=== PATIENT | male | born 1980 | race African-American/Black ===

== ENCOUNTER 2016-10-12 17:12 | Emergency (ER) | payer MEDICAID ==
[~2016-10-12] VITALS: Ht 162.6 cm; Wt 66.5 kg
[~2016-10-12 17:12] MED LIST: LORT5TAB PO; RANI150 PO; Z.0.NO CURRENT MEDS
[2016-10-12 17:21] VITALS: BP 135/85; PULSE 75; RESP 16; TEMP 101.1; O2SAT 97
--- NOTE | 2016-10-12 17:27 | PD ---
HPI Chief Complaint: Oral / Dental Pain or Problem Time Seen by Provider: 17:27 Travel History International Travel<30 days: No Contact w/Intl Traveler<30days: No Traveled to known affect area: No PFSH Past Medical History Respiratory: Yes (asthma) Social History Alcohol Use: Yes Tobacco Use: Yes Substance Use: No Allergies-Medications (Allergen,Severity, Reaction): Coded Allergies: No Known Allergies (Verified , 10/12/16) Reported Meds & Prescriptions Reported Meds & Active Scripts Active Lortab 5/500 (Acetaminophen/Hydrocodone Bitart) 5 Mg/500 Mg Tab 1-2 Tab PO Q6HPRN FOR PAIN Zantac (Ranitidine HCl) 150 Mg Tab 150 Mg PO BID Reported No Current Meds (Miscellaneous Medication) Misc Data Data Last Documented VS Vital Signs Date Time Temp Pulse Resp B/P Pulse Ox O2 Delivery O2 Flow Rate FiO2 10/12/16 17:21 101.1 75 16 135/85 97 MDM Scripts No Active Prescriptions or Reported Meds Rashard Walls Oct 12, 2016 17:27
[2016-10-12] MEDS ORDERED: SODIUM CHLOR 0.9% 1000 ML INJ 1,000 ML IV SCH (17:43)
[2016-10-12] MEDS ORDERED: SODIUM CHLORIDE 0.9% FLUSH 10 ML FLUSH IV FLUSH PRN (17:45)
[2016-10-12] MEDS ORDERED: KETOROLAC TROMETHAMINE 30 MG/ML (IVP) VIAL IVP ONE (17:45)
[2016-10-12] MEDS ORDERED: AMPICILLIN-SULBACTAM INJ 3 GM in SODIUM CHLORIDE 0.9% INJ 100 ML IV ONE (17:45)
[2016-10-12 18:08] VITALS: O2SAT 97
[2016-10-12 18:12] LABS: AUTOMATED NEUTROPHIL # 12.7 TH/MM3 (1.8-7.7); BASOPHIL # 0.3 TH/MM3 (0-0.2); BASOPHIL % 1.9 % (0.0-2.0); EOSINOPHIL % 0.3 % (0.0-4.0); HEMATOCRIT 43.4 % (39.0-51.0); HEMO FLAGS DIFF FINAL; LYMPH % 13.9 % (9.0-44.0); LYMPHOCYTE # 2.3 TH/MM3 (1.0-4.8); MEAN CELL VOLUME 91.9 FL (80.0-100.0); MEAN CORPUSCULAR HEMOGLOBIN 31.4 PG (27.0-34.0); MEAN CORPUSCULAR HGB CONC 34.1 % (32.0-36.0); MONO % 6.8 % (0.0-8.0); NEUT % 77.1 % (16.0-70.0); PLATELET COUNT 279 TH/MM3 (150-450); RED BLOOD COUNT 4.72 MIL/MM3 (4.50-5.90); RED CELL DISTRIBUTION WIDTH 13.2 % (11.6-17.2); WHITE BLOOD COUNT 16.4 TH/MM3 (4.0-11.0)
[2016-10-12 18:23] LABS: CHLORIDE 105 MEQ/L (98-107); POTASSIUM 3.9 MEQ/L (3.5-5.1); SODIUM (NA) 142 MEQ/L (136-145)
[2016-10-12 18:24] VITALS: BP 131/77; PULSE 82; RESP 18; TEMP 99.6; O2SAT 97
[2016-10-12 18:27] LABS: ANION GAP 8 MEQ/L (5-15); APTT (PATIENT) 32.7 SEC (24.3-30.1); BICARBONATE 29.4 MEQ/L (21.0-32.0); BLOOD UREA NITROGEN 7 MG/DL (7-18); PROTHROMBIN TIME - PATIENT 11.6 SEC (9.8-11.6)
[2016-10-12 18:30] LABS: ALT (GPT) 20 U/L (12-78); AST (GOT) 14 U/L (15-37); GLOMERULAR FILTRATION RATE 108 ML/MIN (>89)
[2016-10-12 18:31] LABS: TOTAL BILIRUBIN ADULT 0.8 MG/DL (0.2-1.0)
[2016-10-12 18:32] LABS: ALKALINE PHOSPHATASE 59 U/L (45-117)
[2016-10-12] MEDS ORDERED: IOHEXOL 350 MG/ML 10 ML VIAL (for RAD DIAG) IV ONE (18:34)
--- NOTE | 2016-10-12 19:01 | RADHPO ---
EXAM DATE/TIME: 10/12/2016 18:05 [place] COMPARISON: No previous studies available for comparison. INDICATIONS : Left sided jaw swelling. IV CONTRAST: 67 cc Omnipaque 350 (iohexol) IV RADIATION DOSE: 13.45 CTDIvol (mGy) MEDICAL HISTORY : Asthma SURGICAL HISTORY : None. ENCOUNTER: Initial ACUITY: 1 day PAIN SCALE: 3/10 LOCATION: Left facial TECHNIQUE: Volumetric scanning of the neck was performed. Using automated exposure control and a djustment of the mA and/or kV according to patient size, radiation dose was kept as low as reasonably achievable to obtain optimal diagnostic quality images. FINDINGS: There is a large amount of soft tissue swelling about the angle of the mandible on the left without associated bony destruction. There is effacement of the lingual artery space. The left submandibular gland is very prominent. There is some fluid in the soft tissues without discernible abscess. The left parotid gland appears normal. The induration in the effacement does extend up towards the left tonsillar pillar. There is very minimal nonspecific adenopathy in the low neck. Review of bone windows reveals no obvious bony destruction. Dentition looks intact. Maxillary sinus es are clear. CONCLUSION: 1. Marked soft-tissue swelling on the left. This is suspicious for a submandibular sialoadenitis. 2. Inflammatory process arising from a dental source could also be a consideration. 3. Neoplastic process is thought to be less likely. Correlation is suggested. . Pacheco Santos MD FACR on October 12, 2016 at 18:52 Board Certified Radiologist. This report was verified electronically.
[2016-10-12 20:10] VITALS: BP 122/71; PULSE 88; RESP 18; O2SAT 98
[2016-10-12] MEDS ORDERED: AUGM500T7 PO (20:15)
[2016-10-12] MEDS ORDERED: HYDR-3533 PO (20:15)
--- NOTE | 2016-10-12 20:16 | PD ---
Physical Exam Date Seen by Provider: Oct 12, 2016 Time Seen by Provider: 20:12 Narrative This 36-year-old male is complaining of pain and swelling on the left side of his neck. This is been going on for couple of days. It is very difficult for him to swallow. He has been having fever. He is generally healthy. He has considerable swelling in the area of the left parotid. I don't feel a stone. He has had a CT scan which shows sialoadenitis. After returning from CT scan the patient says he feels like his swelling has gone down. He was given a fluid challenge and is able to drink liquids. He will be released with prescription for Augmentin and Lortab. He is to use lemon drops to stimulate salivary flow. He is stable for discharge Data Data Last Documented VS Vital Signs Date Time Temp Pulse Resp B/P Pulse Ox O2 Delivery O2 Flow Rate FiO2 10/12/16 20:28 88 18 98 10/12/16 20:10 122/71 Room Air 10/12/16 18:24 99.6 Orders Complete Blood Count With Diff (10/12/16 17:43) Comprehensive Metabolic Panel (10/12/16 17:43) Lactic Acid (10/12/16 17:43) Prothrombin Time / Inr (Pt) (10/12/16 17:43) Act Partial Throm Time (Ptt) (10/12/16 17:43) Iv Access Insert/Monitor (10/12/16 17:43) Ecg Monitoring (10/12/16 17:43) Oximetry (10/12/16 17:43) NPO (10/12/16 17:43) Ampicillin-Sulbactam Inj (Unasyn Inj) (10/12/16 17:45) Sodium Chlor 0.9% 1000 Ml Inj (Ns 1000 M (10/12/16 17:43) Sodium Chloride 0.9% Flush (Ns Flush) (10/12/16 17:45) Ketorolac Inj (Toradol Inj) (10/12/16 17:45) Blood Culture (10/12/16 17:43) Ct Soft Tiss Neck W Iv Cont (10/12/16 17:43) Iohexol 350 Inj (Omnipaque 350 Inj) (10/12/16 18:34) Labs Laboratory Tests Test 4/10/17 17:55 White Blood Count 16.4 TH/MM3 Red Blood Count 4.72 MIL/MM3 Hemoglobin 14.8 GM/DL Hematocrit 43.4 % Mean Corpuscular Volume 91.9 FL Mean Corpuscular Hemoglobin 31.4 PG Mean Corpuscular Hemoglobin 34.1 % Concent Red Cell Distribution Width 13.2 % Platelet Count 279 TH/MM3 Mean Platelet Volume 8.6 FL Neutrophils (%) (Auto) 77.1 % Lymphocytes (%) (Auto) 13.9 % Monocytes (%) (Auto) 6.8 % Eosinophils (%) (Auto) 0.3 % Basophils (%) (Auto) 1.9 % Neutrophils # (Auto) 12.7 TH/MM3 Lymphocytes # (Auto) 2.3 TH/MM3 Monocytes # (Auto) 1.1 TH/MM3 Eosinophils # (Auto) 0.0 TH/MM3 Basophils # (Auto) 0.3 TH/MM3 CBC Comment DIFF FINAL Differential Comment Prothrombin Time 11.6 SEC Prothromb Time International 1.0 RATIO Ratio Activated Partial 32.7 SEC Thromboplast Time Sodium Level 142 MEQ/L Potassium Level 3.9 MEQ/L Chloride Level 105 MEQ/L Carbon Dioxide Level 29.4 MEQ/L Anion Gap 8 MEQ/L Blood Urea Nitrogen 7 MG/DL Creatinine 0.95 MG/DL Estimat Glomerular Filtration 108 ML/MIN Rate Random Glucose 101 MG/DL Lactic Acid Level 1.0 mmol/L Calcium Level 8.8 MG/DL Total Bilirubin 0.8 MG/DL Aspartate Amino Transf 14 U/L (AST/SGOT) Alanine Aminotransferase 20 U/L (ALT/SGPT) Alkaline Phosphatase 59 U/L Total Protein 7.6 GM/DL Albumin 4.0 GM/DL [facility] Medical Record Reviewed: No Supervised Visit with RICHARD: Yes Differential Diagnosis Differential includes sialoadenitis, dental abscess Narrative Course CT is suggestive sialoadenitis. Patient reports some improvement in his swelling and has tolerated oral fluids. He'll be released with prescription for Augmentin and Lortab Diagnosis Primary Impression: Sialoadenitis Scripts Hydrocodone-Acetaminophen (Lortab)5-325 Mg Tab1 Tab PO Q4H PRN (PAIN) #20 TAB Ref 0 Prov:Gigi Sanchez MD 10/12/16 Amoxicillin-Clavulanate (Augmentin)500-125 mg [id number] Mg PO Q8H #21 TAB Ref 0 Prov:Gigi Sanchez MD 10/12/16 Disposition: 01 DISCHARGE HOME Condition: Stable Gigi Sanchez MD Oct 12, 2016 20:16
--- NOTE | 2016-10-23 18:10 | PD ---
HPI Chief Complaint: Oral / Dental Pain or Problem Time Seen by Provider: 17:27 Travel History International Travel<30 days: No Contact w/Intl Traveler<30days: No Traveled to known affect area: No History of Present Illness HPI This 36-year-old male is complaining of swelling and pain on the left side of his face. This is been going on for 2 or 3 days. He has been having trouble swallowing. He is not aware of any bad teeth. He has not had trouble like this. He is generally healthy. PFSH Past Medical History Asthma: Yes Respiratory: Yes (asthma) Past Surgical History Surgical History: No Previous Surgery Social History Alcohol Use: Yes (2 X'S WEEK) Tobacco Use: No Substance Use: Yes (PlasticellJU[employer]ingies) Allergies-Medications (Allergen,Severity, Reaction): Coded Allergies: No Known Allergies (Verified , 10/12/16) Reported Meds & Prescriptions Reported Meds & Active Scripts Active Lortab (Hydrocodone-Acetaminophen) 5-325 Mg Tab 1 Tab PO Q4H PRN Augmentin (Amoxicillin-Clavulanate) 500-125 mg Tab 500 Mg PO Q8H Review of Systems General / Constitutional: Positive: Fever, Chills Eyes: No: Diploplia, Blurred Vision HENT: Positive: Sore Throat, No: Headaches, Vertigo Cardiovascular: No: Chest Pain or Discomfort, Palpitations Respiratory: No: Cough, Shortness of Breath Gastrointestinal: Positive: Dysphagia Genitourinary: No: Urgency, Frequency Musculoskeletal: No: Myalgias Neurologic: No: Weakness, Dizziness Physical Exam Narrative GENERAL: Well-developed male SKIN: Focused skin assessment warm/dry. HEAD: Atraumatic. Normocephalic. EYES: Pupils equal and round. No scleral icterus. No injection or drainage. ENT: No nasal bleeding or discharge. Mucous membranes pink and moist. There is considerable swelling in the left parotid area area and it is quite tender to touch NECK: Trachea midline. No JVD. CARDIOVASCULAR: Regular rate and rhythm. No murmur appreciated. RESPIRATORY: No accessory muscle use. Clear to auscultation. Breath sounds equal bilaterally. GASTROINTESTINAL: Abdomen soft, non-tender, nondistended. Hepatic and splenic margins not palpable. MUSCULOSKELETAL: No obvious deformities. No clubbing. No cyanosis. No edema. NEUROLOGICAL: Awake and alert. No obvious cranial nerve deficits. Motor grossly within normal limits. Normal speech. PSYCHIATRIC: Appropriate mood and affect; insight and judgment normal. Data Data Orders Complete Blood Count With Diff (10/12/16 17:43) Comprehensive Metabolic Panel (10/12/16 17:43) Lactic Acid (10/12/16 17:43) Prothrombin Time / Inr (Pt) (10/12/16 17:43) Act Partial Throm Time (Ptt) (10/12/16 17:43) Iv Access Insert/Monitor (10/12/16 17:43) Ecg Monitoring (10/12/16 17:43) Oximetry (10/12/16 17:43) NPO (10/12/16 17:43) Ampicillin-Sulbactam Inj (Unasyn Inj) (10/12/16 17:45) Sodium Chlor 0.9% 1000 Ml Inj (Ns 1000 M (10/12/16 17:43) Sodium Chloride 0.9% Flush (Ns Flush) (10/12/16 17:45) Ketorolac Inj (Toradol Inj) (10/12/16 17:45) Blood Culture (10/12/16 17:43) Ct Soft Tiss Neck W Iv Cont (10/12/16 17:43) Iohexol 350 Inj (Omnipaque 350 Inj) (10/12/16 18:34) MDM Medical Decision Making Medical Screen Exam Complete: Yes Emergency Medical Condition: Yes Medical Record Reviewed: Yes Differential Diagnosis Differential includes abscess, sialoadenitis, sialolithiasis Narrative Course CT is consistent with sialoadenitis adenitis. Patient be placed on antibiotics be released. Diagnosis Primary Impression: Sialoadenitis Referrals: Family Practice Physician call for appointment Patient Instructions: General Instructions, Sialoadenitis (ED) Departure Forms: Tests/Procedures Scripts Hydrocodone-Acetaminophen (Lortab)5-325 Mg Tab1 Tab PO Q4H PRN (PAIN) #20 TAB Ref 0 Prov:Gigi Sanchez MD 10/12/16 Amoxicillin-Clavulanate (Augmentin)500-125 mg Tud232 Mg PO Q8H #21 TAB Ref 0 Prov:Gigi Sanchez MD 10/12/16 Disposition: 01 DISCHARGE HOME Condition: Stable Gigi Sanchez MD Oct 23, 2016 18:10
== END 2016-10-12 20:30 | disposition home or self-care (01) ==
LOC: PHED 17:12
DX: K11.20 Sialoadenitis, unspecified (principal)
CPT/HCPCS: 70491; 80053; 83605; 85025; 85610; 85730; 87040; 96365; 96375; 99284; J0295; J1885; J7030; Q9967

== ENCOUNTER 2016-10-25 22:34 | Emergency (ER) | payer MEDICAID ==
[~2016-10-25] VITALS: Ht 162.6 cm; Wt 66.7 kg
[~2016-10-25 22:34] MED LIST changes: +AUGM500T7 PO; +HYDR-3533 PO; -LORT5TAB PO; -RANI150 PO; -Z.0.NO CURRENT MEDS
[2016-10-25 22:41] VITALS: BP 124/86; PULSE 87; RESP 14; TEMP 98
[2016-10-25 23:05] VITALS: BP 124/88; PULSE 87; RESP 14; TEMP 98; O2SAT 100
[2016-10-25] MEDS ORDERED: AUGM500T7 PO (23:20)
--- NOTE | 2016-10-25 23:20 | PD ---
HPI Chief Complaint: Oral / Dental Pain or Problem Time Seen by Provider: 23:13 Travel History International Travel<30 days: No Contact w/Intl Traveler<30days: No Traveled to known affect area: No History of Present Illness HPI This 36-year-old male is complaining of pain in the left side of his face. He was a patient here on October 12. At that time he had considerable swelling on the left side of his face and trouble swallowing. A CT scan showed sialoadenitis. He was placed on Augmentin with improvement. The swelling went down a couple of days and he finished the Augmentin just a few days ago. Earlier today he started having pain similar to the pain he had prior to the onset ofswelling. He has been able to swallow. He is generally healthy [facility] Past Medical History Asthma: Yes Respiratory: Yes (asthma) Social History Alcohol Use: Yes (2 X'S WEEK) Tobacco Use: No Substance Use: Yes (MARIJUANNA) Allergies-Medications (Allergen,Severity, Reaction): Coded Allergies: No Known Allergies (Verified , 10/12/16) Reported Meds & Prescriptions Reported Meds & Active Scripts Active Lortab (Hydrocodone-Acetaminophen) 5-325 Mg Tab 1 Tab PO Q4H PRN Augmentin (Amoxicillin-Clavulanate) 500-125 mg Tab 500 Mg PO Q8H Review of Systems General / Constitutional: No: Fever, Chills Eyes: No: Diploplia, Blurred Vision HENT: Positive: Sore Throat, Neck Pain, No: Headaches, Vertigo Cardiovascular: No: Chest Pain or Discomfort, Palpitations Respiratory: No: Cough, Shortness of Breath Gastrointestinal: No: Nausea Genitourinary: No: Urgency, Frequency Musculoskeletal: No: Myalgias, Arthralgias Skin: No Rash Neurologic: No: Weakness, Dizziness Physical Exam Narrative GENERAL: Well-developed male SKIN: Focused skin assessment warm/dry. HEAD: Atraumatic. Normocephalic. EYES: Pupils equal and round. No scleral icterus. No injection or drainage. ENT: No nasal bleeding or discharge. Mucous membranes pink and moist. Teeth appear to be intact. There is no tenderness to percussion of the teeth. The area under the angle of the jaw on the left is somewhat tender and this is the area of the problem NECK: Trachea midline. No JVD. CARDIOVASCULAR: Regular rate and rhythm. No murmur appreciated. RESPIRATORY: No accessory muscle use. Clear to auscultation. Breath sounds equal bilaterally. GASTROINTESTINAL: Abdomen soft, non-tender, nondistended. Hepatic and splenic margins not palpable. MUSCULOSKELETAL: No obvious deformities. No clubbing. No cyanosis. No edema. NEUROLOGICAL: Awake and alert. No obvious cranial nerve deficits. Motor grossly within normal limits. Normal speech. PSYCHIATRIC: Appropriate mood and affect; insight and judgment normal. Data Data Last Documented VS Vital Signs Date Time Temp Pulse Resp B/P Pulse Ox O2 Delivery O2 Flow Rate FiO2 10/25/16 22:41 98.0 87 14 124/86 [facility] Medical Decision Making Medical Screen Exam Complete: Yes Emergency Medical Condition: Yes Medical Record Reviewed: Yes Differential Diagnosis Differential includes sialoadenitis, abscess, Narrative Course Physical findings at this time or not impressive that the patient was quite sick with is sialoadenitis. I am going to initiate antibiotics. He is stable for discharge Diagnosis Primary Impression: Sialoadenitis Scripts Amoxicillin-Clavulanate (Augmentin)500-125 mg [id number] Mg PO Q8H 7 Days Ref 0 Prov:Gigi Sanchez MD 10/25/16 Disposition: DISCHARGE HOME Condition: Stable Gigi Sanchez MD Oct 25, 2016 23:20
[2016-10-25] MEDS ORDERED: AMOXICILLIN/CLAVULANATE K 500 MG TAB PO ONE (23:30)
== END 2016-10-25 23:36 | disposition home or self-care (01) ==
LOC: PHED 22:34
DX: K11.20 Sialoadenitis, unspecified (principal); J45.909 Unspecified asthma, uncomplicated; J02.9 Acute pharyngitis, unspecified; M54.2 Cervicalgia
CPT/HCPCS: 99283